=== PATIENT | male | born 2000 | race Caucasian/White ===

== ENCOUNTER 2018-12-24 18:22 | Emergency (ER) | payer MEDICAID, SELFPAY ==
[2018-12-24 19:34] VITALS: BP 124/76; PULSE 81; RESP 16; TEMP 36.7; O2SAT 99
--- NOTE | 2018-12-24 19:56 | ED.GENADUL_ITS ---
Discharge Plan Disposition Patient Disposition: HOME Condition: Good Discharge Details Chief Complaint: DentalOral Clinical Impression: Pain, dental Primary Care Provider: Ale Clayton ED Provider: Catracho Lozoya Home Meds and New Rx's Prescriptions: New amoxicillin-pot clavulanate [Augmentin] 875-125 mg tablet 1 tab PO BID 10 Days Qty: 20 RF: 0 No Action acetaminophen [Acetaminophen Extra Strength] 500 mg Tablet 500 mg PO Q6H PRNRF: 0 ibuprofen 600 mg Tablet 600 mg PO TID PRNRF: 0 Discharge Instructions Instructions: Toothache (ED) Additional Instructions: Please take the antibiotic as directed. Please follow-up immediately with your dentist. Please take Tylenol and Motrin for pain control, please eat yogurt with live culture and high-fiber diet to prevent any diarrhea. Please if you notice any worsening of your symptoms, or any new symptoms such as vomiting, diarrhea, fever, chills, shortness of breath, chest pain, numbness, weakness, or fainting , please return immediately to the emergency department for reevaluation. Please follow up with your primary care provider as soon as possible for reassessment and reevaluation. As always, it was a pleasure participating in your medical care today. Referrals: Ale Clayton [Primary Care Provider] - Medical Decision Making This is a pleasant 18-year-old male who presents for evaluation of concern for dental infection. He was started on penicillin 1 week ago and has been taking this as directed, however he has noticed a small amount of swelling to the right of his nose in the area where he has known mild cavity. Physical exam demonstra denzel no concerning red flags of abscess, fluctuance, severe swelling, airway compromise, or occlusion of the lower eyelid or eye. No evidence of tenderness over the sinuses or the superior nasal bridge. Out of concern for mild infection, that is not being adequately treated by penicillin I do feel that it is reasonable to increase his coverage with Augmentin He has close follow-up with his dentist on the 12th of this month and we have encouraged him to maintain this. discussed red flags for which to return and the patient understands.. I have extensively reviewed the treatment plan and discharge instructions with the patient and their family. I have addressed all patient concerns at this time. The patient and family was made aware of what symptoms to monitor for that would warrant a return to the emergency department. Discussed the plan with the patient and family, they demonstrate verbal understanding and agreement with our assessment and plan at this time. HPI General Date/Time Provider Initiated Documentation: 12/24/18 19:40 . HPI Narrative: This is a pleasant 18-year-old male who presents for evaluation of dental pain. The patient was seen by dentist a week ago and started on penicillin for suspected mild dental and, since then the patient has noticed a slight swelling over his right upper gum and lip. He has had continued very mild pain. He denies any systemic symptoms of fever chills or any sensation of discharge from the mouth. Pain is mild but present. Improved with Tylenol and Motrin. He denies any difficulty swallowing, difficulty breathing, eye pain, or vision pain. He has no other complaints or modifying factors at this time. He is scheduled to see his dentist again on the of this month. Patient denies any recent surgeries, IV or illicit drug use or pertinent family history. Related Data Home Medications Medication Instructions Recorded Confirmed acetaminophen [Acetaminophen Extra 500 mg PO Q6H PRN 12/24/18 12/24/18 Strength] amoxicillin-pot clavulanate 1 tab PO BID 10 Days #20 tab 12/24/18 [Augmentin] ibuprofen 600 mg PO TID PRN 12/24/18 12/24/18 Previous Rx's Medication Instructions Recorded amoxicillin-pot clavulanate 1 tab PO BID 10 Days #20 tab 12/24/18 [Augmentin] Allergies Allergy/AdvReac Type Severity Reaction Status Date / Time No Known Allergies Allergy Unverified 08/31/16 13:05 General Stated Complaint: DentalOral JOVANNI: 3 Review of Systems Review of Systems All systems reviewed & are unremarkable except as noted in HPI and below PFSH Surgical History Appendectomy Excision, Lesion Family History Sister Personal history of malignant neoplasm Maternal Aunt Asthma Social History Smoking/Tobacco Use Status: Never Exam Narrative Exam Narrative: 1.Const: Well-nourished, Well-developed, appearing stated age 2.Eyes: PERRL, no conjunctival injection, and symmetrical lids. 3.ENT: Atraumatic external nose and ears. Moist MM. Neck: Symmetric, trachea midline, No thyromegaly. Oral exam demonstrates no severe dental caries. No evidence of peridental abscess over the affected area for the right upper teeth. No tenderness on palpation of the teeth or the upper gums. Minimal subjective swelling is noted to the right of the nose, but no evidence of inclusion for the lower eyelid, no pain with movements of the eye, no evidence of fluctuance or abscess. No evidence of abscess or periapical abscess on oral exam. No signs of discharge. No signs of airway compromise. Patient demonstrates good movement of cervical neck. There is no nuchal rigidity, no nuchal tenderness. Patient is able to flex the neck without any difficulty or significant pain. Negative Kernig's and Brudzinski sign. 4.CVS: +S1/S2, No murmurs or gallops. Peripheral pulses 2+ and equal in all extremities. Brisk capillary refill in all extremities. 5.RESP: Unlabored respiratory effort. Clear to auscultation bilaterally. No wheezes rales or rhonchi 6.GI: Soft, Nontender/Nondistended, No hepatosplenomegaly. No guarding or rebound. 7.MSK: Normocephalic/Atraumatic, Extremities w/o deformity or ttp No cyanosis or clubbing, Normal movement of all extremities 8.Skin: Warm, Dry. No rashes or lesions. 9.Neuro: system support developer II-XII grossly intact. Sensation grossly intact, no focal neurologic deficits. 10.Psych: (AAO) x3. Appropriate mood and affect Course Vital Signs Temperature 36.7 C 12/24/18 19:34 Pulse 81 12/24/18 19:34 Respiratory Rate 16 12/24/18 19:34 Blood Pressure 124/76 12/24/18 19:34 Pulse Oximetry 99 12/24/18 19:34 Temperature 36.7 C 12/24/18 19:34 Temperature Source Skin 12/24/18 19:34 Pulse 81 12/24/18 19:34 Respiratory Rate 16 12/24/18 19:34 Blood Pressure 124/76 12/24/18 19:34 Blood Pressure Position Sitting 12/24/18 19:34 Pulse Oximetry 99 12/24/18 19:34 Oxygen Delivery Method Room Air 12/24/18 19:34 Oxygen Flow Rate 0 12/24/18 19:34 Pain Level 2 12/24/18 19:34
[2018-12-24] MEDS: Amoxicillin 875/Clav. 125 TAB PO (20:03)
== END 2018-12-24 20:05 | disposition home or self-care (01) ==
PROVIDERS: Emergency Provider Student in an Organized Health Care Education/Training Program; PCP Nurse Practitioner Family
DX: K08.89 Other specified disorders of teeth and supporting structures (principal)
CPT/HCPCS: 99283

== ENCOUNTER 2025-07-10 10:55 | Emergency (ER) | payer MEDICAID, SELFPAY ==
[2025-07-10 11:03] VITALS: BP 130/85; PULSE 72; RESP 15; TEMP 36.7; O2SAT 97
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
[2025-07-10 13:06] VITALS: BP 118/76; PULSE 61; RESP 16; O2SAT 100
== END 2025-07-10 13:06 | disposition home or self-care (01) ==
PROVIDERS: Emergency Provider Physician Assistant; PCP Nurse Practitioner Family
DX: M23.91 Unspecified internal derangement of right knee (principal); Y93.64 Activity, baseball
CPT/HCPCS: 99283 ×2; 73562